=== PATIENT | male | born 1960 | race Caucasian/White ===

== ENCOUNTER 2020-07-05 08:24 | Inpatient (IN) ==
--- NOTE | 2020-06-18 16:31 | PAT Medication Instructions ---
Medication Instructions Date of Service June 18, 2020 Home Medications acetaminophen 325 mg PO QID PRN amitriptyline 50 mg PO HS amlodipine [Norvasc] 2.5 mg PO QAM aspirin [Aspir-Low] 81 mg PO DAILY atorvastatin [Lipitor] 40 mg PO QAM clopidogrel [Plavix] 75 mg PO QAM donepezil [Aricept] 5 mg PO HS gabapentin 800 mg PO TID glipizide 5 mg PO QAM hydrocodone-acetaminophen [[place]] 1 tab PO Q8H PRN hydroxyzine HCl [Atarax] 25 mg PO TID PRN ipratropium bromide [Atrovent] 0.5 mg INHALATION Q6H PRN isosorbide mononitrate [Imdur] 30 mg PO BID ketoconazole [Nizoral] 1 applic TOPICAL BID magnesium oxide 400 mg PO QAM memantine 5 mg PO QAM metoprolol succinate [Toprol XL] 50 mg PO QAM mirtazapine [Remeron] 30 mg PO QAM oxcarbazepine [Trileptal] 600 mg PO BID pantoprazole [Protonix] 40 mg PO QAM pilocarpine HCl [Salagen (pilocarpine)] 5 mg PO TID prazosin [Minipress] 2 mg PO HS simvastatin [Zocor] 40 mg PO HS sumatriptan succinate [Imitrex] 100 mg PO UD PRN tizanidine [Zanaflex] 4 mg PO QAM venlafaxine [Effexor] 75 mg PO BID ASK your prescriber and surgeon aspirin [Aspir-Low] 81 mg PO DAILY clopidogrel [Plavix] 75 mg PO QAM STOP taking 24 hours before surgery ketoconazole [Nizoral] 1 applic TOPICAL BID DO NOT take the morning of surgery glipizide 5 mg PO QAM hydroxyzine HCl [Atarax] 25 mg PO TID PRN magnesium oxide 400 mg PO QAM pilocarpine HCl [Salagen (pilocarpine)] 5 mg PO TID tizanidine [Zanaflex] 4 mg PO QAM Take morning of surgery With a small sip of water, OTHERWISE NOTHING TO EAT OR DRINK AFTER MIDNIGHT: acetaminophen 325 mg PO QID PRN (okay to take up to 4 hours prior to surgery if needed) amlodipine [Norvasc] 2.5 mg PO QAM atorvastatin [Lipitor] 40 mg PO QAM gabapentin 800 mg PO TID hydrocodone-acetaminophen [[place]] 1 tab PO Q8H PRN (okay to take up to 4 hours prior to surgery if needed) ipratropium bromide [Atrovent] 0.5 mg INHALATION Q6H PRN (if needed) isosorbide mononitrate [Imdur] 30 mg PO BID memantine 5 mg PO QAM metoprolol succinate [Toprol XL] 50 mg PO QAM mirtazapine [Remeron] 30 mg PO QAM oxcarbazepine [Trileptal] 600 mg PO BID pantoprazole [Protonix] 40 mg PO QAM sumatriptan succinate [Imitrex] 100 mg PO UD PRN (if needed) venlafaxine [Effexor] 75 mg PO BID Take evening before surgery acetaminophen 325 mg PO QID PRN (if needed) amitriptyline 50 mg PO HS donepezil [Aricept] 5 mg PO HS gabapentin 800 mg PO TID hydrocodone-acetaminophen [[place]] 1 tab PO Q8H PRN (if needed) hydroxyzine HCl [Atarax] 25 mg PO TID PRN (if needed) ipratropium bromide [Atrovent] 0.5 mg INHALATION Q6H PRN (if needed) isosorbide mononitrate [Imdur] 30 mg PO BID oxcarbazepine [Trileptal] 600 mg PO BID pilocarpine HCl [Salagen (pilocarpine)] 5 mg PO TID prazosin [Minipress] 2 mg PO HS simvastatin [Zocor] 40 mg PO HS sumatriptan succinate [Imitrex] 100 mg PO UD PRN (if needed) venlafaxine [Effexor] 75 mg PO BID Other Notes If you have any questions please call us at [phone] or [phone] or [phone] or [phone]
--- NOTE | 2020-06-20 13:31 | Anesthesiology Consultation ---
Date of Service June 20, 2020 Assessment & Plan (1) Encounter for pre-operative examination: - Awaiting surgeon-ordered PCP clearance (Dr. Zacarias; [place]). - Awaiting most recent cardiology office visit note (Dr. Keys). *Per PAT assessment on 06/20: Travel screen- lives in [facility]. No known COVID-19 positive contacts. No current COVID-19 related symptoms. Surgeon arranging preop COVID testing. Awaiting results. Chart Review Chart Review: Patient seen in Pre Admission Testing Teaching & Discussion Pre-Anesthesia Teaching/Discussion Notes: Instructed NPO after midnight before surgery,except medications with 15 cc of water. Medication instructions provi ded according to the PAT guidelines. History Surgery Operation Date: 07/05/20 10:05 Proposed Procedures p L4-L5 Decompression Fusion, Spinal Cord Monitoring - Romeo Keen DO Height/Weight Height: 6 ft 4 in Weight: 106.7 kg Allergies Allergy/AdvReac Type Severity Reaction Status Date / Time No Known Allergies Allergy Verified 06/13/20 14:40 Medications Home Medications Medication Instructions Recorded Confirmed Last Taken acetaminophen 325 mg PO QID PRN 06/13/20 06/13/20 Unknown amitriptyline 50 mg PO HS 06/13/20 06/13/20 Unknown amlodipine [Norvasc] 2.5 mg PO QAM 06/13/20 06/13/20 Unknown aspirin [Aspir-Low] 81 mg PO DAILY 06/13/20 06/13/20 Unknown atorvastatin [Lipitor] 40 mg PO QAM 06/13/20 06/13/20 Unknown clopidogrel [Plavix] 75 mg PO QAM 06/13/20 06/13/20 Unknown donepezil [Aricept] 5 mg PO HS 06/13/20 06/13/20 Unknown gabapentin 800 mg PO TID 06/13/20 06/13/20 Unknown glipizide 5 mg PO QAM 06/13/20 06/13/20 Unknown hydrocodone-acetaminophen [[place]] 1 tab PO Q8H PRN 06/13/20 06/13/20 Unknown hydroxyzine HCl [Atarax] 25 mg PO TID PRN 06/13/20 06/13/20 Unknown ipratropium bromide [Atrovent] 0.5 mg INHALATION Q6H PRN 06/13/20 06/13/20 Unknown isosorbide mononitrate [Imdur] 30 mg PO BID 06/13/20 06/13/20 Unknown ketoconazole [Nizoral] 1 applic TOPICAL BID 06/13/20 06/13/20 Unknown magnesium oxide 400 mg PO QAM 06/13/20 06/13/20 Unknown memantine 5 mg PO QAM 06/13/20 06/13/20 Unknown metoprolol succinate [Toprol XL] 50 mg PO QAM 06/13/20 06/13/20 Unknown mirtazapine [Remeron] 30 mg PO QAM 06/13/20 06/13/20 Unknown oxcarbazepine [Trileptal] 600 mg PO BID 06/13/20 06/13/20 Unknown pantoprazole [Protonix] 40 mg PO QAM 06/13/20 06/13/20 Unknown pilocarpine HCl [Salagen 5 mg PO TID 06/13/20 06/13/20 Unknown (pilocarpine)] prazosin [Minipress] 2 mg PO HS 06/13/20 06/13/20 Unknown simvastatin [Zocor] 40 mg PO HS 06/13/20 06/13/20 Unknown sumatriptan succinate [Imitrex] 100 mg PO UD PRN 06/13/20 06/13/20 Unknown tizanidine [Zanaflex] 4 mg PO QAM 06/13/20 06/13/20 Unknown venlafaxine [Effexor] 75 mg PO BID 06/13/20 06/13/20 Unknown Past Medical History Medical History (Updated 06/20/20 @ 15:55 by Minnie Isabel) Anxiety and depression Asthma CAD (coronary artery disease) stent x3 (most recent approximately 2016) Cancer ? type (mets to bone) Dementia GERD (gastroesophageal reflux disease) Hyperlipidemia Hypertension Migraine Myocardial Infarction 2019 Osteoarthritis Poor historian Stroke approximately 1 year ago Exercise / Class Metabolic Activity III < 4 Walking/Shop/Light housework (uses cane PRN) Past Family History Family History Mother Family history of diabetes mellitus Family hx of colon cancer Father Family history of diabetes mellitus Past Surgical History Surgical History (Updated 06/20/20 @ 15:55 by Minnie Isabel) History of appendectomy History of cardiac cath multiple, most recent 06/2019- no stents History of tooth extraction History of total hip arthroplasty RT Past Anesthesia History No Hx of Anesthesia Complications and No Family Hx of Anesthesia Complications History of PONV No Hx of PONV and No Hx of Motion Sickness Social History Smoking Status: Former smoker tobacco type: cigarettes Do You Dip or Chew Tobacco: No Smoking End Date: 40 CIG DAILY x 40+ years Hx Alcohol Use: No Hx Substance Use: No Review of Systems Patient denies chest pain, shortness of breath, fever, chills, cough, wheezing, palpitations. Physical Exam Vital Signs VITALS BP P TEMP SP02 RESP PHYSICAL Full neck and c-spine range of motion. Full TMJ range of motion. TMD 3.5 finger breaths Mallampati Score 3 Dentition: edentulous Lungs: clear throughout to auscultation Cardiac: regular rate and rhythm, no murmurs noted Spine: normal Carotid arteries: negative bruit Extremities: no edema Testing Laboratory Results 06/20/20 13:50 06/20/20 13:50 PT 9.8 Seconds (9.0-12.0) 06/20/20 13:50 INR 0.9 (0.9-1.1) 06/20/20 13:50 APTT 25.3 Seconds (21.0-31.0) 06/20/20 13:50 Urine Color Yellow 06/20/20 13:50 Urine Appearance Clear (Clear) 06/20/20 13:50 Urine pH 5.0 (4.5-7.5) 06/20/20 13:50 Ur Specific [place] 1.010 (1.000-1.030) 06/20/20 13:50 Urine Protein Negative (Negative) 06/20/20 13:50 Urine Glucose (UA) Negative (Negative) 06/20/20 13:50 Urine Ketones Negative (Negative) 06/20/20 13:50 Urine Nitrite Negative (Negative) 06/20/20 13:50 Ur Leukocyte Esterase 1+ (Negative) H 06/20/20 13:50 Urine WBC (Auto) 1-5 /hpf (0-5) 06/20/20 13:50 Urine RBC (Auto) 0-4 /hpf (0-4) 06/20/20 13:50 U Hyaline Cast (Auto) 0 /lpf (0-5) 06/20/20 13:50 U Epithel Cells (Auto) 0-5 /lpf (0-5) 06/20/20 13:50 Urine Bacteria (Auto) Negative (Negative) 06/20/20 13:50 Blood Type A Positive 06/20/20 13:50 Antibody Screen NEGATIVE 06/20/20 13:50 Electrocardiogram Date: 06/20/20 SB at 57bpm. Inferior infarct, age undetermined. Anteroseptal infarct, age undetermined. Received previous EKG for comparison from 03/08/20- EKG indicates inferior infarct cited on or before 12/23/19 as well as cannot r/o anteroseptal infarct cited on or before 12/23/19* Chest X-Ray Date: 03/08/20 Findings: + NAD Echocardiogram Date: 06/22/19 LVEF 50-55%. Apical wall HK. No significant valvular disease. Stress Test Date: 02/21/19 Type: nuclear Abnormal SPECT myocardial perfusion study. There is a non-reversible perfusion defect in the apical wall as well as the distal infero-apical wall. There is a small reversible defect in the distal thomas-apical wall consistent with a mild rupal-infarct ischemia. Consistent with obstructive disease in the LAD territory. Apical akinesis. LVEF 46%. Cardiac Catheterization Date: 06/21/19 LVEF 40%. Anteroseptal wall motion HK. Angiographically moderate one vessel occlusive coronary disease, patent stents in LAD, spasm in distal RCA. "Given present anatomy patient should be managed medically.. aggressive risk factor modification should be maintained."
[2020-06-20 14:52] LABS: Basophils # (auto) 0.06 K/uL (0-0.2); Basophils % (auto) 0.7 %; Eosinophils # (auto) 0.47 K/uL (0-0.5); Eosinophils % (auto) 5.6 %; Hematocrit (blood only) 39.9 % (42-52); Hemoglobin 13.1 g/dL (14.0-18.0); Immature Granulocytes # (auto) 0.04 K/uL (0.00-0.02); Immature Granulocytes % (auto) 0.5 %; Lymphocytes # (auto) 2.74 K/uL (1.2-3.4); Lymphocytes % (auto) 32.5 %; Mean Corpuscular Hemoglobin 29.8 pg (25-34); Mean Corpuscular Hgb Conc 32.8 g/dL (32-36); Mean Corpuscular Volume 90.9 fL (80-100); Mean Platelet Volume 9.8 fL (7.4-10.4); Monocytes # (auto) 0.49 K/uL (0.11-0.59); Monocytes % (auto) 5.8 %; Neutrophils # (auto) 4.63 K/uL (1.4-6.5); Neutrophils % (auto) 54.9 %; Platelet Count 262 K/uL (130-400); RDW Coefficient of Variation 13.7 % (11.5-14.5); RDW Standard Deviation 45.2 fL (36.4-46.3); Red Blood Count 4.39 M/uL (4.7-6.1); White Blood Count 8.43 K/uL (4.8-10.8)
[2020-06-20 15:05] LABS: INR 0.9 (0.9-1.1); Partial Thromboplastin Ratio 0.9; Partial Thromboplastin Time 25.3 Seconds (21.0-31.0); Prothrombin Time 9.8 Seconds (9.0-12.0)
[2020-06-20 15:08] LABS: Appearance Urine Clear (Clear); BUN Creatinine Ratio 8.2 (10-20); Bacteria Urine Automated Negative (Negative); Bilirubin Urine Negative (Negative); Blood Urine Negative (Negative); Calcium 9.2 mg/dl (8.5-10.1); Cast Urine Automated 0 /lpf (0-5); Color Urine Yellow; Creatinine Clr Calc Pharmacy 87.7 ml/min; Epithelial Cell Urine Auto 0-5 /lpf (0-5); Est GFR (African American) 75.7; Est GFR (Non-African American) 65.3; Glucose Urine UA Negative (Negative); Ketones Urine Negative (Negative); Leukocyte Esterase Urine 1+ (Negative); Nitrite Urine Negative (Negative); Potassium 4.2 mmol/L (3.5-5.1); Protein Urine Negative (Negative); RBC Urine Automated 0-4 /hpf (0-4); Urobilinogen Urine Negative (Negative)
--- NOTE | 2020-06-21 05:47 | Electrocardiogram Report ---
Test Reason : Blood Pressure : / mmHG Vent. Rate : 057 BPM Atrial Rate : 057 BPM P-R Int : 160 ms QRS Dur : 104 ms QT Int : 456 ms P-R-T Axes : 043 -10 063 degrees QTc Int : 443 ms Sinus bradycardia Inferior infarct , age undetermined Anteroseptal infarct , age undetermined Abnormal ECG No previous ECGs available Confirmed by Bob Cornell ([id number]) on 06/21/2020 5:46:50 AM Referred By: Romeo Keen Confirmed By:Bob Cornell
[~2020-07-05 08:24] MED LIST: ACETAMINOPHEN 500 MG TAB PO SCH; CEFAZOLIN 2000MG 2,000 MG/15 ML SYR IV SCH; CeleBREX 200 MG CAP PO SCH; GABAPENTIN 600 MG DOSE PO SCH; LR 15ML/HR IV SCH
[2020-07-05] MEDS ORDERED: fentaNYL citrate 100 MCG/2 ML VIAL ONE (09:13)
[2020-07-05] MEDS ORDERED: HYDROmorphone INJ 2 MG/ML SYR/VIAL ONE (09:13)
[2020-07-05] MEDS ORDERED: MIDAZOLAM HCL 1 MG/ML 2ML VIAL ONE (09:13)
[2020-07-05] MEDS ORDERED: ONDANSETRON INJ 2 MG/ML 2 ML VIAL IV PRN (09:30)
[2020-07-05] MEDS ORDERED: fentaNYL citrate 100 MCG/2 ML VIAL IV PRN (09:30)
[2020-07-05] MEDS ORDERED: ATROPINE SULFATE 0.1 MG/ML 10ML SYR IV PRN (09:30)
[2020-07-05] MEDS ORDERED: ePHEDrine sulfate 50 MG/ML AMP IV PRN (09:30)
--- NOTE | 2020-07-05 09:31 | History & Physical Bridge Note ---
Date of Service July 05, 2020 History & Physical Bridge Note I have examined the patient, reviewed the History & Physical and in the interval since the performance of the History & Physical I have noted the following changes of clinical significance: no changes noted
--- NOTE | 2020-07-05 09:32 | History & Physical Report ---
Date of Service July 05, 2020 Assessment & Plan Admission and Anticipated Discharge Date Admission Date: L4-L5 decompression History of Present Illness Chief Complaint: Back and bilateral leg pain Primary Care Provider: Jersey Zacarias This is a 6-year-old male who presents with chronic persistent back and bila teral leg pain. Failing since course of nonoperative care is here for surgical intervention. Allergies Allergy/AdvReac Type Severity Reaction Status Date / Time No Known Allergies Allergy Verified 07/05/20 08:51 Home Medications Home Medications Medication Instructions Recorded Confirmed Type acetaminophen 325 mg PO QID PRN 06/13/20 06/13/20 History amitriptyline 50 mg PO HS 06/13/20 07/05/20 History amlodipine [Norvasc] 2.5 mg PO QAM 06/13/20 07/05/20 History aspirin [Aspir-Low] 81 mg PO DAILY 06/13/20 07/05/20 History atorvastatin [Lipitor] 40 mg PO QAM 06/13/20 07/05/20 History clopidogrel [Plavix] 75 mg PO QAM 06/13/20 07/05/20 History donepezil [Aricept] 5 mg PO HS 06/13/20 07/05/20 History gabapentin 800 mg PO TID 06/13/20 07/05/20 History glipizide 5 mg PO QAM 06/13/20 07/05/20 History hydrocodone-acetaminophen [[place]] 1 tab PO Q8H PRN 06/13/20 07/05/20 History hydroxyzine HCl [Atarax] 25 mg PO TID PRN 06/13/20 06/13/20 History ipratropium bromide [Atrovent] 0.5 mg INHALATION Q6H PRN 06/13/20 06/13/20 History isosorbide mononitrate [Imdur] 30 mg PO BID 06/13/20 07/05/20 History ketoconazole [Nizoral] 1 applic TOPICAL BID 06/13/20 06/13/20 History magnesium oxide 400 mg PO QAM 06/13/20 07/05/20 History memantine 5 mg PO QAM 06/13/20 07/05/20 History metoprolol succinate [Toprol XL] 50 mg PO QAM 06/13/20 07/05/20 History mirtazapine [Remeron] 30 mg PO QAM 06/13/20 07/05/20 History oxcarbazepine [Trileptal] 600 mg PO BID 06/13/20 07/05/20 History pantoprazole [Protonix] 40 mg PO QAM 06/13/20 07/05/20 History pilocarpine HCl [Salagen 5 mg PO TID 06/13/20 07/05/20 History (pilocarpine)] prazosin [Minipress] 2 mg PO HS 06/13/20 07/05/20 History simvastatin [Zocor] 40 mg PO HS 06/13/20 07/05/20 History sumatriptan succinate [Imitrex] 100 mg PO UD PRN 06/13/20 06/13/20 History tizanidine [Zanaflex] 4 mg PO QAM 06/13/20 07/05/20 History venlafaxine [Effexor] 75 mg PO BID 06/13/20 07/05/20 History Past Med/Surg History Medical History Anxiety and depression Asthma CAD (coronary artery disease) stent x3 (most recent approximately 2016) Cancer ? type (mets to bone) Dementia GERD (gastroesophageal reflux disease) Hyperlipidemia Hypertension Migraine Myocardial Infarction 2018 Osteoarthritis Poor historian Stroke approximately 1 year ago Surgical History History of appendectomy History of cardiac cath multiple, most recent 06/2019- no stents History of tooth extraction History of total hip arthroplasty RT Family History Mother Family history of diabetes mellitus Family hx of colon cancer Father Family history of diabetes mellitus Social History Smoking Status: Former smoker Smoking End Date: 40 CIG DAILY x 40+ years; Second Hand Exposure: Yes; Do You Dip or Chew Tobacco: No; Tobacco Cessation Education Requested by Patient: No Hx Alcohol Use: No Hx Substance Use: No 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 Regular rate and rhythm Lungs clear to auscultation
[2020-07-05] MEDS ORDERED: BACITRACIN INJ 50,000 UNIT VIAL ONE (09:42)
[2020-07-05] MEDS ORDERED: BUPIVACAINE/EPINEPHRINE 0.25% 1:200,000 30 ML VIAL ONE (09:42)
--- NOTE | 2020-07-05 10:08 | History & Physical Bridge Note ---
Date of Service July 05, 2020 History & Physical Bridge Note I have examined the patient, reviewed the History & Physical and in the interval since the performance of the History & Physical I have noted the following changes of clinical significance: no changes noted Lumbar decompression fusion L4-5
[2020-07-05] MEDS ORDERED: DEXAMETHASONE SOD INJ 4 MG/ML VIAL ONE (11:11)
[2020-07-05] MEDS ORDERED: ROCURONIUM BROMIDE 10 MG/ML 5 ML VIAL IV ONE (11:12)
[2020-07-05] MEDS ORDERED: NEOSTIGMINE METHYLSULFATE 1 MG/ML 10ML VIAL ONE (11:12)
[2020-07-05] MEDS ORDERED: PROPOFOL IV EMULSION 10 MG/ML 20 ML VIAL IV ONE (11:12)
[2020-07-05] MEDS ORDERED: ONDANSETRON INJ 2 MG/ML 2 ML VIAL ONE (11:12)
[2020-07-05] MEDS ORDERED: LIDOCAINE HCL 2% 2 ML VIAL/AMP(20MG/ML) INFIL ONE (11:12)
[2020-07-05] MEDS ORDERED: GLYCOPYRROLATE 0.2 MG/ML VIAL ONE ×2 (11:12→11:31)
[2020-07-05] MEDS ORDERED: FLOSEAL HEMOSTATIC MATRIX 10ML TOP ONE (12:40)
--- NOTE | 2020-07-05 12:42 | Operative Report ---
Post Operative Report Pre & Post Diagnosis Operation Date: 07/05/20 10:05 Pre-Op Diagnosis: Lumbar spinal stenosis with neurogenic claudication Post-Op Diagnosis: Same I identified the patient and participated in the time-out.: Yes Procedure Operation Date: 07/05/20 10:05 Actual Procedures #1 lumbar decompression with bilateral medial facetectomies and foraminotomies L3-4 and L4-5. #2 posterior spinal fusion L4-5 per #3 placement posterior instrumentation L4-5 per #4 interbody fusion L4-5. #5 placed a peek cage 12 x 26 mm at L4-5 per #6 placement of locally harvested morselized autograft in the posterior gutters. #7 placement infuse collagen sponge, master graft and posterior gutters and ostial amp interbody space. Surgeon Romeo Keen, Social Services Counselor Harrison Lindsey Estimated Blood Loss 75 Findings Consistent with Post-Op Diagnosis Specimens None Indications This is a 60-year-old male who presents above-mentioned diagnosis after failed extensive course of nonoperative care is here for the above-mentioned procedure. Description of Procedure Patient was met with identified informed consent obtained. Patient was then taken to the operative suite underwent an patient placed in a prone position the Ivan table on top James frame. All bony prominences well-padded eyes inspected to ensure no external pressure placed upon. This point the lumbar spine was prepped and draped in normal sterile fashion. Sharp dissection with assistance of Bovie cautery was performed down to and exposing the lamina and transverse processes of L4 and L5 bilaterally. From a caudal cephalad fashion complete laminectomy of L4 partial laminectomy of L3 was performed including bilateral medial facetectomies and foraminotomies addressing severe spinal stenosis. Pedicle screws were then placed in L4-L5 bilaterally with assistance of fluoroscopy and the proper sized regis placed. By way of a transforaminal approach on the right a complete discectomy was performed endplates coated to subcortical bleeding bone and a 12 x 26 mm peek cage filled with osteo-bone graft tapped in position. The rods were then locked in final position bilaterally. The transverse processes of L4 and L5 bur to subcortical bleeding bone. Infuse collagen sponge mass graft local autograft was placed in the posterior gutters. 15 round GUILLERMINA drain inserted. The incision was then closed with 1 Vicryl in the fascia 2-0 Vicryl subcutaneously and 4 Monocryl for final skin closure. Steri-Strip sterile dressings placed. Patient waken taken to PACU stable condition. Please note spinal cord monitoring was utilized at the procedure no changes noted. I attest to the content of the Intraoperative Record and any orders documented therein. Any exceptions are noted below.
--- NOTE | 2020-07-05 12:58 | Fluoroscopy Report ---
FL lumbar spine 2-3V CLINICAL HISTORY: L4-L5 DECOMPRESSION AND FUSION COMPARISON STUDY: None FLUOROSCOPY TIME: 16 seconds. NUMBER OF FLUOROSCOPIC IMAGES: 2 FINDINGS: 2 intraoperative fluoroscopic spot images reveal postsurgical changes at L4-5 discectomy an d interbody fusion with posterior pedicle screw fixation. There is a grade 1 spondylolisthesis of L4 on L5 IMPRESSION: Intraoperative fluoroscopic spot images demonstrating an L4-5 spinal decompression and f usion ACT 112: Negative or not required by law. Electronically signed by: Jagdeep Wade M.D. 07/05/2020 12:57 PM
--- NOTE | 2020-07-05 13:57 | Anesthesiology Progress Note ---
Date of Service July 05, 2020 Anesthesia Post Procedure Vital Signs Vital Signs: Temp Pulse Pulse Resp BP BP Pulse Ox 07/05/20 13:50 69 13 137/76 95 07/05/20 13:40 97.2 F L 77 12 138/83 96 07/05/20 13:30 78 12 149/87 H 97 07/05/20 13:21 96.8 F L 81 12 145/80 H 99 07/05/20 09:20 97.7 F 68 20 154/88 H 98 Pain Intensity Bilateral Back: Pain Intensity: 0 Transfer of Care Handoff Completed per policy Notes Mental Status: alert / awake / arousable and participated in evaluation Patient Amnestic to Procedure: Yes Nausea / Vomiting: adequately controlled Pain: adequately controlled Airway Patency, RR, SpO2: stable & adequate BP & HR: stable & adequate Hydration State: stable & adequate Anesthetic Complications: no major complications apparent and Pt Satisfied with anesthetic care
[2020-07-05] MEDS ORDERED: SUMAtriptan succinate 100 MG TAB PO PRN (14:04)
[2020-07-05] MEDS ORDERED: TRAMADOL HCL 50 MG TABLET PO PRN (14:04)
[2020-07-05] MEDS ORDERED: ONDANSETRON 4 MG OD TAB PO PRN (14:04)
[2020-07-05] MEDS ORDERED: NALOXONE HCL 0.4 MG/1 ML VIAL/CARP IV PRN (14:04)
[2020-07-05] MEDS ORDERED: LORazepam 0.5 MG/1 ML VIAL IV PRN (14:04)
[2020-07-05] MEDS ORDERED: HYDROmorphone INJ 1 MG/ML SYRINGE IV PRN (14:04)
[2020-07-05] MEDS ORDERED: FAMOTIDINE 20 MG TAB PO PRN (14:04)
[2020-07-05] MEDS ORDERED: DO NOT ADMINISTER FLU VACCINE PRN (14:04)
[2020-07-05] MEDS ORDERED: METOCLOPRAMIDE HCL INJ 5 MG/ML 2 ML VIAL IV PRN (14:04)
[2020-07-05] MEDS ORDERED: ACETAMINOPHEN 1,000 MG/100 ML VIAL IV PRN (14:04)
[2020-07-05] MEDS ORDERED: SOD PHOSPHATE/SOD BIPHOSPHATE ENEMA 132 ML BTL PR PRN (14:04)
[2020-07-05] MEDS ORDERED: MAGNESIUM HYDROXIDE SUSP 30 ML UDC PO PRN (14:04)
[2020-07-05] MEDS ORDERED: PROMETHAZINE HCL 12.5 MG in SODIUM CHLORIDE 0.9% 50 ML IV PRN (14:04)
[2020-07-05] MEDS ORDERED: ALUMINUM/MAGNESIUM SUSP 30 ML UDC PO PRN (14:04)
[2020-07-05] MEDS ORDERED: IPRATROPIUM BROMIDE NEB SOLN 0.02% 2.5 ML VIAL INH PRN (14:04)
[2020-07-05] MEDS ORDERED: DO NOT ADMINISTER PNEUMOCOCCAL VACCINE PRN (14:04)
[2020-07-05] MEDS ORDERED: HYDROmorphone INJ 0.5 MG/0.5 ML SYR IV PRN (14:04)
[2020-07-05] MEDS ORDERED: LORazepam 0.5 MG TAB PO PRN (14:04)
[2020-07-05] MEDS ORDERED: bisacodyL 10 MG SUPP PR PRN (14:04)
[2020-07-05] MEDS ORDERED: ACETAMINOPHEN 500 MG TAB PO PRN (14:04)
--- NOTE | 2020-07-05 14:28 | Pharmacy Report ---
Glycemic Control Consultation - Date of Service July 05, 2020 - Scope Scope: Glycemic Pharmacist consulted for glycemic control and to write orders per [facility] inpatient glycemic control protocol. - Objective Weight: 106.7 kg - Recent Pertinent Medications Outpatient Anti-diabetic Regimen: * glipizide * A1c = ordered Risk Factors for Insulin Resistance: * Steroids: DXM 8 iv * Recent Surgery: POD 0 * Diet: t2dm - Assessment & Plan Assessment & Plan: ASSESSMENT: * 60 year old male now s/p spinal surgery. POD 0 - pharmacy consulted for glycemic management postop * Patient did receive steroids preop thereafter anticipate steroid induced hyperglycemia. Plan to utilize basal/bolus insulin postop PLAN FOR INPATIENT GLYCEMIC CONTROL: * Holding outpatient oral diabetes medications * Basal insulin * NPH 15-20 units with dinner based upon BSG to cover steroids * Bolus insulin * NovoLog per scale ACHS or Q6hrs while NPO * Goal Range: Low 110 mg/dL - High 140 mg/dL * Correction Factor: 20 mg/dL/unit * Nutritional / Prandial insulin per carb ratio of 1 unit per 7 grams CHO consumed * Please note that the plan above was derived based on current level of insulin resistance and hospital stress. These recommendations are appropriate for inpatient admission only. Plan of care upon discharge will need to be reassessed to avoid potential outpatient hypo/hyperglycemia. Thank you.
[2020-07-05] MEDS ORDERED: PHARMACY GLYCEMIC MGMT CONSULT PRN (14:29)
[2020-07-05] MEDS ORDERED: GLUCAGON FOR INJ 1 MG VIAL IM PRN (14:30)
[2020-07-05] MEDS ORDERED: GLUCOSE 10 TABS/TUBE PO PRN (14:30)
[2020-07-05] MEDS ORDERED: DEXTROSE 50% 50 ML SYRINGE IV PRN (14:30)
[2020-07-05] MEDS ORDERED: GLUCOSE 40% GEL 15 GM TUBE PO PRN (14:30)
[2020-07-05] MEDS ORDERED: CARBOHYDRATES FOR HYPOGLYCEMIA PO PRN (14:30)
[2020-07-05] MEDS: SODIUM CHLORIDE 0.9% 1000ML 1,000 ML IV SCH ×2 (14:37→20:49)
--- NOTE | 2020-07-05 14:46 | Consultation ---
Date of Consultation July 05, 2020 Assessment & Plan (1) Neurogenic claudication due to lumbar spinal stenosis: S/P Lumbar decompression/fusion L4-5 POD #[address] Keen EBL 75ml; GUILLERMINA drain 60ml pain/wound management per ortho activity and therapy per ortho encourage incentive spirometry, wean O2 as able monitor H/H - pre op 13.1/39.9 (2) CAD (coronary artery disease): no chest pain/sob continue asa, statin, metoprolol resume plavix when hemostasis achieved per ortho (3) Hypertension: blood pressure stable continue metoprolol, amlodipine, and imdur monitor (4) Hyperlipidemia: continue statin (5) T2DM (type 2 diabetes mellitus): per chart review, questionable dx of T2DM on glipizde Lat A1C 5.6 03/2020 repeat A1C in a.m. glycemic pharmacy on board for hyperglycemic management in setting of pre op steroids, appreciate their management (6) Dementia: per problem list pt is on namenda and aricept monitor (7) COPD (chronic obstructive pulmonary disease): No acute exacerbation Continue Anoro (8) Anxiety and depression: Continue effects or, prazosin, Trileptal, mirtazapine, amitriptyline Mood is currently flat and drowsy, but he is postop Monitor daily (9) Tobacco abuse: Tobacco cessation encouraged Smokes 2 to 3 packs a day Refuses nicotine patch (10) DVT prophylaxis: per primary Follow up: PCP Dr. Ambrocio upon discharge Disposition: per ortho/primary Pt was seen and examined in collaboration with Dr. Muhammad, please see addendum Starting 07/06/2020 pt will be under the care of Dr. Lopez Thank you for this consultation. We will follow the patient with you during their hospital stay. You [facility] via pager @ [phone]. Supervising Physician Co-Signing Physician Notes I, Dr. Kvng Muhammad, have seen and examined the patient Christopher Ny with physician blood bank assistant and On Physical Exam General: no distress, feeling nausea, speaking in full sentences Heart: regular rate Lung: clear to auscultation Back: lower back with dressing, GUILLERMINA drain Abdomen: soft Assessment and Plan -This is a patient of orthopedics who had Pre-Op Diagnosis of Lumbar spinal stenosis with neurogenic claudication -On 07/05/20 patient had the following lumbar spine procedure by Dr. Keen Actual Procedures #1 lumbar decompression with bilateral medial facetectomies and foraminotomies L3-4 and L4-5. #2 posterior spinal fusion L4-5 per #3 placement posterior instrumentation L4-5 per #4 interbody fusion L4-5. #5 placed a peek cage 12 x 26 mm at L4-5 per #6 placement of locally harvested morselized autograft in the posterior gutters. #7 placement infuse collagen sponge, master graft and posterior gutters and ostial amp interbody space. -Hospitalist Medicine service is asked for consultation for Medical management -management of Type 2 diabetes mellitus with pharmacy glycemic consult as requested by orthopedic service -patient has history of coronary artery disease with stent. At home he is on aspirin 81 mg and clopidogrel 75 daily. Currently on aspirin daily while in the hospital. Orthopedics may decide to resume clopidogrel when bleed risks post- operatively are low -nausea and pain medications prn -PT/OT evaluations, follow the labs for 07/06/2020 -agree with other assessment and plans of other chronic health conditions as documented by physician blood bank assistant -My colleague hospitalist Dr. Lopez will be following the patient starting on 07/06/2020 History of Present Illness Requesting Physician: Dr. Keen Reason for Consultation: Post op medical management Attending Physician: Romeo Keen DO History of Present Illness This is a 60-year-old male who has significant PMH of CAD, chronic ischemic heart disease, HTN, HLD, COPD, tobacco abuse, T2DM, depression who presents for elective lumbar decompression fusion by Dr. Keen. Postoperatively patient feels well and currently denies any pain. He is overall drowsy and rather a poor historian. Family member is at bedside. He currently denies any fever, chills, sweats, lightheadedness, dizziness, chest pain, shortness of breath, cough, nausea, vomiting, abdominal pain. He denies any difficulty with urinating or moving bowels prior to procedure. He denies being diabetic despite being on glipizide. Last A1c was 5.9 03/09/2020. 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 He was last seen in cardiology clinics 05/2020 with complaints of stable angina. His Imdur was increased from 30 mg daily to twice daily. He was otherwise felt stable for surgery. His last echocardiogram was 06/22/2019 which revealed EF 50 to 55%, apical wall hypokinesis. He did have a cardiac cath 06/2019 which revealed patent stents of the LAD and circumflex. Allergies Allergy/AdvReac Type Severity Reaction Status Date / Time No Known Allergies Allergy Verified 07/05/20 08:51 Home Medications Home Medications Medication Instructions Recorded Confirmed Type acetaminophen 325 mg PO QID PRN 06/13/20 06/13/20 History amitriptyline 50 mg PO HS 06/13/20 07/05/20 History amlodipine [Norvasc] 2.5 mg PO QAM 06/13/20 07/05/20 History aspirin [Aspir-Low] 81 mg PO DAILY 06/13/20 07/05/20 History atorvastatin [Lipitor] 40 mg PO QAM 06/13/20 07/05/20 History clopidogrel [Plavix] 75 mg PO QAM 06/13/20 07/05/20 History donepezil [Aricept] 5 mg PO HS 06/13/20 07/05/20 History gabapentin 800 mg PO TID 06/13/20 07/05/20 History glipizide 5 mg PO QAM 06/13/20 07/05/20 History hydrocodone-acetaminophen [Edmond] 1 tab PO Q8H PRN 06/13/20 07/05/20 History hydroxyzine HCl [Atarax] 25 mg PO TID PRN 06/13/20 06/13/20 History ipratropium bromide [Atrovent] 0.5 mg INHALATION Q6H PRN 06/13/20 06/13/20 History isosorbide mononitrate [Imdur] 30 mg PO BID 06/13/20 07/05/20 History ketoconazole [Nizoral] 1 applic TOPICAL BID 06/13/20 06/13/20 History magnesium oxide 400 mg PO QAM 06/13/20 07/05/20 History memantine 5 mg PO QAM 06/13/20 07/05/20 History metoprolol succinate [Toprol XL] 50 mg PO QAM 06/13/20 07/05/20 History mirtazapine [Remeron] 30 mg PO QAM 06/13/20 07/05/20 History oxcarbazepine [Trileptal] 600 mg PO BID 06/13/20 07/05/20 History pantoprazole [Protonix] 40 mg PO QAM 06/13/20 07/05/20 History pilocarpine HCl [Salagen 5 mg PO TID 06/13/20 07/05/20 History (pilocarpine)] prazosin [Minipress] 2 mg PO HS 06/13/20 07/05/20 History sumatriptan succinate [Imitrex] 100 mg PO UD PRN 06/13/20 06/13/20 History tizanidine [Zanaflex] 4 mg PO QAM 06/13/20 07/05/20 History venlafaxine [Effexor] 75 mg PO BID 06/13/20 07/05/20 History umeclidinium-vilanterol [Anoro 1 inh INHALATION DAILY 07/05/20 07/05/20 History Ellipta] Patient History Medical History (Updated 07/05/20 @ 15:12 by Melanie Salgado PA-C) Anxiety and depression Asthma CAD (coronary artery disease) stent x3 (most recent approximately 2016) Cancer ? type (mets to bone) COPD (chronic obstructive pulmonary disease) Dementia GERD (gastroesophageal reflux disease) Hyperlipidemia Hypertension Migraine Myocardial Infarction 2018 Osteoarthritis Poor historian Stroke approximately 1 year ago Surgical History History of appendectomy History of cardiac cath multiple, most recent 06/2019- no stents History of tooth extraction History of total hip arthroplasty RT Family History Mother Family history of diabetes mellitus Family hx of colon cancer Father Family history of diabetes mellitus Social History (Updated 07/05/20 @ 14:50 by Melanie Salgado PA-C) Smoking Status: Former smoker Smoking End Date: 40 CIG DAILY x 40+ years; Second Hand Exposure: Yes; Do You Dip or Chew Tobacco: No; Tobacco Cessation Education Requested by Patient: No Hx Alcohol Use: Yes Alcohol Intake Frequency: Monthly or Less Hx Substance Use: No Preferred 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: 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: No Beliefs That Will Affect Care: None Current Living Situation: Alone current occupational status: unemployed Feels Safe at Home: Yes Safety Concerns: Feels Safe At This Time Review of Systems Review of Systems: All systems reviewed & are unremarkable except as noted in HPI & below Physical Exam Physical Exam: Constitutional: Tall, M, WD/WN, vitals as above, NAD, drowsy, poor history, answers questions appropriately, sitting up in bed Head: Normocephalic, Atraumatic Eyes: PERRL, conjunctivae normal, anicteric sclerae ENMT: external ear and nose normal, oropharynx normal Neck: trachea midline, no thyromegaly normal visual inspection Respiratory: normal respiratory effort, lungs clear to auscultation, no wheeze, rales, rhonchi. Normal insp/exp effort, no accessory muscle use Cardiovascular: RRR, no murmur, no edema Vessels: no JVD or carotid bruit Chest: normal inspection of chest Abdomen: normal bowel sounds, soft, nontender, no hepatosplenomegaly Musculoskeletal: no cyanosis or clubbing, extremities motor strength 5/5 Skin: no rashes, warm and dry normal turgor Neurologic: PERRL, EOMI, accommodation nl, no face palsy, no dysarthria CN's II-XI intact bilaterally and moves all extremities Psychiatric: A+Ox3, flat, affect Lymphatic: no cervical or axillary lymphadenopathy : deferred Results & Data ([facility]) Vital Signs (Past 12 Hours) Vital Signs Temp Pulse Pulse Resp BP BP Pulse Ox 07/05/20 14:30 36.5 C 63 18 144/87 H 95 07/05/20 14:16 36.5 C 66 18 147/78 H 94 07/05/20 13:50 69 13 137/76 95 07/05/20 13:40 36.2 C L 77 12 138/83 96 07/05/20 13:30 78 12 149/87 H 97 07/05/20 13:21 36.0 C L 81 12 145/80 H 99 07/05/20 09: 36.5 C 68 20 154/88 H 98 Laboratory Results Preop lab work 06/20/2020 revealed H&H 13.1 and 39.9, to BC 8.43, platelet 262, BUN 10, creatinine 1.20, glucose 100 A1c 5.6 03/09/2020 Diagnostic Findings CXR: 03/08/20 no acute cardiopulmonary abnormality Medications Administered Acetaminophen (Acetaminophen 500 Mg Tab) 1,000 mg PO PREOP ALANNA Stop: 07/05/20 18:00 Last Admin: 07/05/20 09:07 Dose: 1,000 mg Documented by: [id number] Celecoxib (Celebrex 200 Mg Cap) 200 mg PO PREOP ALANNA Stop: 07/05/20 18:00 Last Admin: 07/05/20 09:07 Dose: 200 mg Documented by: [id number] Gabapentin (Gabapentin 600 Mg Dose) 600 mg PO PREOP ALANNA Stop: 07/05/20 18:00 Last Admin: 07/05/20 09:08 Dose: 600 mg Documented by: [id number] Lactated Ringer's (Lr) 1,000 mls @ 15 mls/hr IV .Q24H ALANNA Stop: 07/06/20 05:59 Last Infusion: 07/05/20 10:30 Dose: 0 mls/hr Documented by: [id number] Admin: 07/05/20 09:07 Dose: 15 mls/hr Documented by: [id number] Cefazolin Sodium (Ancef 2000mg) 2,000 mg in 15 mls @ 3.75 mls/min IV PREOP ALANNA; Protocol Stop: 07/05/20 18:00 Last Admin: 07/05/20 11:17 Dose: 3.75 mls/min Documented by: [id number] Sodium Chloride (Nss 1000ml) 1,000 mls @ 150 mls/hr IV .Q6H40M ALANNA Stop: 08/04/20 14:03 Last Admin: 07/05/20 14:37 Dose: 150 mls/hr Documented by: [id number] Discontinued Medications Bacitracin (Bacitracin Inj 50,000 Unit Vial) Confirm Administered Dose 50,000 units .ROUTE .STK-MED ONE Stop: 07/05/20 09:43 Last Admin: 07/05/20 14:36 Dose: Not Given Documented by: [id number] Bupivacaine HCl/Epinephrine Bitart (Bupivacaine/Epinephrine 0.25% 1:200,000 30 Ml Vial) Confirm Administered Dose 30 ml .ROUTE .STK-MED ONE Stop: 07/05/20 09:43 Last Admin: 07/05/20 14:36 Dose: Not Given Documented by: [id number] Miscellaneous ( Floseal Hemostatic Matrix 10ml) 15 ml TOP ONCE ONE Stop: 07/05/20 12:41 Last Admin: 07/05/20 14:36 Dose: Not Given Documented by: [id number] ECG Rate (beats per minute): 63 Rhythm: normal sinus Findings: + T-wave inversion (Lateral)
[2020-07-05] MEDS: ONDANSETRON INJ 2 MG/ML 2 ML VIAL IV PRN ×2 (15:02→22:08)
[2020-07-05] MEDS: PILOCARPINE HCL 5 MG TABLET PO SCH ×2 (16:07→20:50)
[2020-07-05] MEDS: GABAPENTIN 800 MG TAB PO SCH ×2 (16:07→20:49)
[2020-07-05] MEDS ORDERED: NovoLIN-N (NPH) PER UNIT CHARGE SQ SCH (18:00)
[2020-07-05] MEDS: INSULIN ASPART 100 UNITS/ML 3 ML PEN SC SCH ×2 (18:32→20:53)
[2020-07-05] MEDS: CEFAZOLIN 2000MG 2,000 MG/15 ML SYR IV SCH (19:54)
[2020-07-05] MEDS: ISOSORBIDE MONO EXTENDED REL 30 MG TABCR PO SCH (20:49)
[2020-07-05] MEDS: DONEPEZIL HCL 5 MG TAB PO SCH (20:49)
[2020-07-05] MEDS: AMITRIPTYLINE HCL 50 MG TAB PO SCH (20:49)
[2020-07-05] MEDS: PRAZOSIN HCL 1 MG CAP PO SCH (20:50)
[2020-07-05] MEDS: DOCUSATE SODIUM/SENNA 50/8.6MG TAB PO SCH (20:50)
[2020-07-05] MEDS: OXcarbazepine 150 MG TABLET PO SCH (20:50)
[2020-07-05] MEDS: OXYCODONE HCL IR 5 MG TAB (IMMEDIATE RELEASE) PO PRN (20:58)
[2020-07-05] MEDS ORDERED: SIMVASTATIN 40 MG TAB PO SCH (21:00)
[2020-07-05] MEDS ORDERED: VENLAFAXINE HCL 75 MG TAB PO SCH (21:00)
[2020-07-05] MEDS ORDERED: VENLAFAXINE HCL 37.5 MG TAB PO ONE (22:30)
[2020-07-06] MEDS: INSULIN ASPART 100 UNITS/ML 3 ML PEN SC SCH ×6 (00:46→20:41)
[2020-07-06] MEDS: SODIUM CHLORIDE 0.9% 1000ML 1,000 ML IV SCH ×2 (03:35→10:00)
[2020-07-06] MEDS: CEFAZOLIN 2000MG 2,000 MG/15 ML SYR IV SCH (03:36)
[2020-07-06] MEDS: POLYETHYLENE (MIRALAX) 17 GM PACK PO SCH ×4 (05:35→23:29)
[2020-07-06 05:48] LABS: Basophils # (auto) 0.01 K/uL (0-0.2); Basophils % (auto) 0.1 %; Eosinophils # (auto) 0.03 K/uL (0-0.5); Eosinophils % (auto) 0.2 %; Hematocrit (blood only) 33.8 % (42-52); Hemoglobin 11.4 g/dL (14.0-18.0); Immature Granulocytes # (auto) 0.02 K/uL (0.00-0.02); Immature Granulocytes % (auto) 0.2 %; Lymphocytes # (auto) 1.54 K/uL (1.2-3.4); Lymphocytes % (auto) 12.4 %; Mean Corpuscular Hemoglobin 29.5 pg (25-34); Mean Corpuscular Hgb Conc 33.7 g/dL (32-36); Mean Corpuscular Volume 87.3 fL (80-100); Mean Platelet Volume 9.7 fL (7.4-10.4); Monocytes # (auto) 0.79 K/uL (0.11-0.59); Monocytes % (auto) 6.4 %; Neutrophils % (auto) 80.7 %; Platelet Count 231 K/uL (130-400); RDW Coefficient of Variation 13.5 % (11.5-14.5); RDW Standard Deviation 42.9 fL (36.4-46.3); Red Blood Count 3.87 M/uL (4.7-6.1); White Blood Count 12.39 K/uL (4.8-10.8)
[2020-07-06 06:20] LABS: BUN Creatinine Ratio 11.4 (10-20); Calcium 8.1 mg/dl (8.5-10.1); Creatinine Clr Calc Pharmacy 94.9 ml/min; Est GFR (African American) 83.2; Est GFR (Non-African American) 71.8; Potassium 4.2 mmol/L (3.5-5.1)
[2020-07-06 06:49] LABS: Estimated Average Glucose 123 mg/dl; Hemoglobin A1C 5.9 % (4.5-5.6)
--- NOTE | 2020-07-06 08:15 | Orthopedic Progress Note ---
Date of Service July 06, 2020 Assessment & Plan (1) Neurogenic claudication due to lumbar spinal stenosis: Admission and Anticipated Discharge Date Admission Date: July 05, 2020 Supervising Physician Co-Signing Physician Notes Dr. Romeo Keen Subjective Patient is postoperative day 1 lumbar decompression fusion of L4-5. He is doing great. He had an uneventful evening. Leg pain is greatly improved. Back pain is controlled. GUILLERMINA drain output last shift was 70 cc. H&H is morning are 11.4 and 33.8 respectively. No other complaints. Review of Systems Review of Systems: All systems reviewed & are unremarkable except as noted in HPI & below Physical Exam Physical Exam: Patient is lying in bed in no acute distress. He is alert and oriented x3. Lumbar dressing is clean dry and intact with GUILLERMINA drain functioning. Lower extremities calves are soft nontender bilaterally. Strength is intact bilateral lower extremities. Constitutional: WD/WN, vitals as above Eyes: normal visual harrison by confrontation ENMT: external ear and nose normal, oropharynx normal Neck: normal visual inspection Respiratory: normal respiratory effort Cardiovascular: Extremities: normal capillary refill Chest (Breasts): Chest: normal inspection of chest Gastrointestinal (Abdomen): Inspection/Auscultation: abdomen normal to inspection Musculoskeletal: Extremities: strength 5/5 throughout and + lower extremity abnormal to inspection Skin: no rashes, warm and dry Neurologic: normal touch/pain/proprioception and moves all extremities Psychiatric: A+Ox3, euthymic affect Results & Data ([facility]) Vital Signs (Past 12 Hours) Vital Signs Temp Pulse Pulse Resp BP BP Pulse Ox 07/06/20 07:17 37.0 C 73 15 129/67 94 07/06/20 03:59 36.6 C 65 14 92/63 L 92 07/05/20 23:10 36.4 C L 79 14 127/73 95
[2020-07-06] MEDS: MIRTAZAPINE TAB 15 MG TAB PO SCH (08:57)
[2020-07-06] MEDS: PILOCARPINE HCL 5 MG TABLET PO SCH ×3 (08:57→20:34)
[2020-07-06] MEDS: OXcarbazepine 150 MG TABLET PO SCH ×2 (08:57→20:34)
[2020-07-06] MEDS: AMLODIPINE BESYLATE 5 MG TAB PO SCH (08:57)
[2020-07-06] MEDS: PANTOprazole 40 MG TAB PO SCH (08:57)
[2020-07-06] MEDS: ASPIRIN 81 MG ECTAB PO SCH (08:58)
[2020-07-06] MEDS: UMECLIDINIUM/VILANTEROL 62.5/25MCG 7 PUFFS/INHALER INH SCH (08:58)
[2020-07-06] MEDS: ATORVASTATIN 40 MG TAB PO SCH (08:58)
[2020-07-06] MEDS: MAGNESIUM OXIDE 400 MG TAB PO SCH (08:58)
[2020-07-06] MEDS: VENLAFAXINE HCL 37.5 MG TAB PO SCH ×2 (08:58→20:32)
[2020-07-06] MEDS: MEMANTINE HCL 5 MG TAB PO SCH (08:58)
[2020-07-06] MEDS: GABAPENTIN 800 MG TAB PO SCH ×3 (08:58→20:32)
[2020-07-06] MEDS: ISOSORBIDE MONO EXTENDED REL 30 MG TABCR PO SCH ×2 (08:58→20:33)
[2020-07-06] MEDS ORDERED: glipiZIDE 5 MG TAB PO SCH (09:00)
[2020-07-06] MEDS: OXYCODONE HCL IR 5 MG TAB (IMMEDIATE RELEASE) PO PRN ×3 (09:06→20:33)
[2020-07-06] MEDS: TIZANIDINE HCL 4 MG TABLET PO SCH (10:02)
[2020-07-06] MEDS: METOPROLOL SUCC 50MG EXT REL TAB PO SCH (10:02)
--- NOTE | 2020-07-06 15:29 | Hospitalist Progress Note ---
Date of Service July 06, 2020 Assessment & Plan (1) Neurogenic claudication due to lumbar spinal stenosis: S/P Lumbar decompression/fusion L4-5 POD #[address] Keen Back pain is reasonably well controlled, pain/wound management per ortho activity and therapy per ortho encourage incentive spirometry, Patient is in room air, no hypoxia no cough . H&H remained stable (2) CAD (coronary artery disease): no chest pain/sob continue asa, statin, metoprolol resume plavix when hemostasis achieved per ortho (3) Hypertension: blood pressure stable continue metoprolol, amlodipine, and imdur monitor (4) Hyperlipidemia: continue statin (5) T2DM (type 2 diabetes mellitus): per chart review, questionable dx of T2DM on glipizde Lat A1C 5.6 03/2020 repeat A1C in a.m. glycemic pharmacy on board for hyperglycemic management in setting of pre op steroids, appreciate their management (6) Dementia: Postprocessed baseline, and alert awake oriented x2 answering questions appropriately pt is on namenda and aricept monitor (7) COPD (chronic obstructive pulmonary disease): No acute exacerbation Continue Anoro (8) Anxiety and depression: Continue Effexor, prazosin, Trileptal, mirtazapine, amitriptyline (9) Tobacco abuse: Tobacco cessation encouraged Smokes 2 to 3 packs a day Refuses nicotine patch (10) DVT prophylaxis: per primary Follow up: PCP Dr. Ambrocio upon discharge Disposition: per ortho/primary Thank you for this consultation. We will follow the patient with you during their hospital stay. You can reach a member of the [facility]ist Team 24/05 via pager @ [phone]. Admission and Anticipated Discharge Date Admission Date: July 05, 2020 Subjective Patient reports back pain has improved after surgery, no fever chills, no shortness of breath no cough Physical Exam Constitutional: WD/WN, vitals as above no acute distress Eyes: PERRL, conjunctivae normal, anicteric sclerae ENMT: external ear and nose normal, oropharynx normal Neck: trachea midline, no thyromegaly Respiratory: normal respiratory effort, lungs clear to auscultation Cardiovascular: RRR, no murmur, no edema Gastrointestinal (Abdomen): Percussion/Palpation: abdomen soft; abdomen nontender Musculoskeletal: Status post lumbar spine decompression surgery, GUILLERMINA drain present Skin: no rashes, warm and dry Neurologic: PERRL, EOMI, accommodation nl, no face palsy, no dysarthria Results & Data Results & Data ([facility]) Vital Signs (Past 12 Hours) Vital Signs Temp Pulse Pulse Resp BP BP Pulse Ox 07/06/20 15:20 37 C 73 18 118/55 L 92 07/06/20 12:35 36.6 C 81 15 125/68 93 07/06/20 07:17 37.0 C 73 15 129/67 94 07/06/20 03:59 36.6 C 65 14 92/63 L 92
[2020-07-06] MEDS: DONEPEZIL HCL 5 MG TAB PO SCH (20:32)
[2020-07-06] MEDS: PRAZOSIN HCL 1 MG CAP PO SCH (20:33)
[2020-07-06] MEDS: AMITRIPTYLINE HCL 50 MG TAB PO SCH (20:33)
[2020-07-06] MEDS: DOCUSATE SODIUM/SENNA 50/8.6MG TAB PO SCH (20:34)
[2020-07-07] MEDS: POLYETHYLENE (MIRALAX) 17 GM PACK PO SCH (06:00)
[2020-07-07] MEDS: UMECLIDINIUM/VILANTEROL 62.5/25MCG 7 PUFFS/INHALER INH SCH (07:54)
[2020-07-07] MEDS: OXcarbazepine 150 MG TABLET PO SCH (07:54)
[2020-07-07] MEDS: TIZANIDINE HCL 4 MG TABLET PO SCH (07:54)
[2020-07-07] MEDS: OXYCODONE HCL IR 5 MG TAB (IMMEDIATE RELEASE) PO PRN (07:54)
[2020-07-07] MEDS: PILOCARPINE HCL 5 MG TABLET PO SCH (07:55)
[2020-07-07] MEDS: MIRTAZAPINE TAB 15 MG TAB PO SCH (07:55)
[2020-07-07] MEDS: METOPROLOL SUCC 50MG EXT REL TAB PO SCH (07:55)
[2020-07-07] MEDS: PANTOprazole 40 MG TAB PO SCH (07:56)
[2020-07-07] MEDS: GABAPENTIN 800 MG TAB PO SCH (07:56)
[2020-07-07] MEDS: MAGNESIUM OXIDE 400 MG TAB PO SCH (07:56)
[2020-07-07] MEDS: AMLODIPINE BESYLATE 5 MG TAB PO SCH (07:56)
[2020-07-07] MEDS: ISOSORBIDE MONO EXTENDED REL 30 MG TABCR PO SCH (07:56)
[2020-07-07] MEDS: VENLAFAXINE HCL 37.5 MG TAB PO SCH (07:56)
[2020-07-07] MEDS: MEMANTINE HCL 5 MG TAB PO SCH (07:56)
[2020-07-07] MEDS: ATORVASTATIN 40 MG TAB PO SCH (07:56)
[2020-07-07] MEDS: ASPIRIN 81 MG ECTAB PO SCH (07:57)
[2020-07-07] MEDS: INSULIN ASPART 100 UNITS/ML 3 ML PEN SC SCH (08:10)
--- NOTE | 2020-07-07 08:33 | Discharge Summary ---
Date of Service July 07, 2020 Admission HPI Per Admitting Provider This is a 60-year-old male who presents with chronic persistent back and bilateral leg pain. Failing since course of nonoperative care is here for surgical intervention. Admission Exam (Per Admitting) Constitutional WD/WN, vitals as above Eyes normal visual harrison by confrontation ENMT external ear and nose normal, oropharynx normal Neck normal visual inspection Respiratory normal respiratory effort Cardiovascular Extremities: normal capillary refill Chest (Breasts) Chest: normal inspection of chest Gastrointestinal (Abdomen) Inspection/Auscultation: abdomen normal to inspection Musculoskeletal Extremities: extremities normal to inspection and + muscle atrophy Skin no rashes, warm and dry Neurologic normal touch/pain/proprioception and moves all extremities Psychiatric A+Ox3, euthymic affect Discharge Data Consultations 07/05/20 14:04 Consult Case Management - Discharge Planning Routine Consult Hospitalist Routine Procedures Performed Operation Date: 07/05/20 10:05 Actual Procedures p L4-L5 Decompression Fusion, Spinal Cord Monitoring, Application of Bone Morphogenetic Protein and Allograft - Romeo Keen, Hospital Course (1) Neurogenic claudication due to lumbar spinal stenosis: Patient has had an uneventful postoperative course from a posterior lumbar decompression fusion of L4-5. Leg pain has resolved postoperatively. Back pain has been controlled. He is making progress daily and physical therapy. Lab values have been stable. GUILLERMINA drain has been diminishing appropriately. He is being discharged home on postoperative day 2. Discharge Instructions ACTIVITY RECOMMENDATIONS: SELF CARE INSTRUCTIONS AFTER THORACIC/LUMBAR FUSIONS 1. You may walk to your tolerance. It is good exercise for your legs and back. Expect some back and intermittent leg aches and pains. 2. You may perform "counter-top" level activities (make a sandwich, beryl with a project, etc.). 3. No bending or lifting of more than 10 pounds or back twisting of any nature (roll like a log when turning in bed). 4. You may ride in a car for 20-30 minutes at a time. No driving until after your first visit with your doctor. 5. Frequent changes of position and restricting sitting to 30 minutes at a time will help limit the amount of back spasms and stiffness you may experience. 6. You may discontinue the use of ambulatory aids (cane, crutches, etc.) once your strength and confidence allow. 7. You may toll line mechanic the shower and let water strike your incision when you arrive home at least once daily. Do not take a tub bath, sit in a hot tub or go into a swimming pool until after your first recheck in the office. SPECIAL CARE INSTRUCTIONS: VERY IMPORTANT TO READ AND REVIEW A. Your surgical incision has been closed with a cosmetic suture under the skin that will dissolve in about 6 weeks. In 14 days, you can use a pair of clean scissors and cut the suture that is left outside of the skin at the ends of your incision. 1. The small skin tapes can be removed 7 days after surgery if they have not fallen off by that point. 2. You may keep the wound open to air as much as possible to promote healing after post-op day number 5 unless told otherwise by your doctor. 3. If you think the wound looks like it is becoming infected (redness or worsening drainage) and/or you are experiencing fever, chill or worsening back pain and muscle spasms, contact the office so that we may evaluate you as soon as possible. B. Complications are uncommon, but please contact us if you have any signs or symptoms of: 1. wound infection (fever higher than 102.5 degrees F, redness, separation of wound, drainage, or increasing pain from the incision) 2. blood clots in legs (pain, swelling, redness and warmth in legs) 3. urinary tract infection (fever higher than 102.5 degrees F, burning upon urination or increased frequency of urination) 4. nerve problems (inability to walk on your toes or heels, numbness, loss of bowel or bladder control) 5. any other symptoms that concern you C. Please call the office at if you have any concerns or questions about your operation or recovery. D. No smoking! Smoking drastically decreases the chance of a solid fusion. E. Do not take any anti-inflammatory medications (Indocin, Advil, Motrin, Aspirin, Naprosyn, etc.) as these may inhibit the chance of a solid fusion. Tylenol is okay to take for pain. MANAGING PAIN AFTER SPINAL SURGERY 1. Narcotic medication is intended for short-term use and will be provided for surgical pain. Surgical pain usually lasts for a period of 4-6 weeks. Narcotic medication includes Percocet, Vicodin, Darvocet, Tylenol #3 or Lortab. 2. Longer-term pain is more appropriately treated with non-narcotic medication such as Tylenol ES. 3. Muscle spasm is not appropriately treated with narcotics. Muscle relaxers such as Soma, Flexeril or Skelaxin can be used along with Tylenol ES. 4. Remember that we all live with some "aches and pains". This is not unusual or uncommon after an injury or as we get older. a. Back pain is expected and may include muscle spasms for 4 to 6 weeks after surgery. The pain should gradually improve. If the pain worsens for no apparent reason, please contact the office. b. Intermittent leg pain may also be experienced and should not be concerned about unless it worsens for no apparent reason. If so, please contact the office. 5. We will provide appropriate medication within the normal guidelines of their prescribed use. We will also be very cautious and aware of potential abuse and extended duration of patients' medication needs. a. Pain medications are for your comfort and to assist with sleep and rest so that the tissue can heal. They are not provided in order to return to normal activity and should not be used through the day. To do so or worsening pain at night can result from ongoing tissue damage and development of tolerance to the prescribed medicine. 6. Please allow 2-3 days to process refills. Prescriptions will not be mailed but must be picked up at the office. FOLLOW UP VISIT: Keep your scheduled follow-up appointment. Any questions, please call the office at . Supervising Physician Co-Signing Physician Notes Dr. Romeo Keen
== END 2020-07-07 10:26 | disposition home health service (06) | DRG 455 ==
LOC: 3E 08:24 → ASU 08:24 → OBSVTOIN 13:29